=== PATIENT | male | born 1945 | race Caucasian/White ===

== ENCOUNTER → 2019-12-24 09:53 | Outpatient (CLI) | payer OTHER, SELFPAY ==
[2019-12-24 23:42] LABS: COVID19 Sendout Not Detected (Not Detect)
== END ==
PROVIDERS: Visit Provider Physician Assistant
DX: Z01.812 Encounter for preprocedural laboratory examination (principal)
CPT/HCPCS: 87635

== ENCOUNTER 2019-12-27 08:26 | Day surgery (SDC) | payer OTHER, SELFPAY ==
[2019-12-27] MEDS: PROPARACAINE 0.5% OPHTH SOL 2 DROPS EYE-OP (08:42)
[2019-12-27] MEDS: CATARACT EYE COMPOUND (10 DROPS/SYRINGE) 3 DROPS EYE-OP (08:43)
[2019-12-27 08:45] VITALS: BP 147/90; PULSE 66; RESP 18; TEMP 36.9; O2SAT 100; BMI 26.4
--- NOTE | 2019-12-27 08:54 | SUR.OPER ---
Supine on eye stretcher, head on extension cradle secured with tape. Arms tucked at sides with blanket. Pillow under knees.
--- NOTE | 2019-12-27 09:14 | PM.PREOP ---
Pre-operative Note COVID-19 COVID-19 status: Negative Result date/Date tested (Pos, Neg/Pending): 12/24/19 Interval Note History & Physical reviewed/Exam performed by Physician: Yes Changes to H&P: No
[2019-12-27] MEDS: PHENYLEPHRINE/LIDOCAINE VIAL (OR) 0.2 ML EYE-OP (10:01)
[2019-12-27] MEDS: MOXIFLOXACIN INJ 5 MG/ML VIAL EYE-OP (10:02)
[2019-12-27] MEDS: LIDOCAINE 2% INJ SDV 2 ML INJ (10:03)
[2019-12-27] MEDS: CHONDROIDTIN/SOD HYALURONATE 1.05 ML SYRINGE INTRAOCULA (10:03)
[2019-12-27] MEDS: TETRACAINE 0.5% OPHTH DROPS 4 ML 2 DROPS EYE-OP (10:03)
[2019-12-27] MEDS: BALANCED SALT IRRIG SOLN NO.2 500 ML, EPINEPHrine 1 MG IRR (10:04)
--- NOTE | 2019-12-27 10:25 | PM.OP.1 ---
Procedure & Clinicians Procedure: Cataract extraction with intraocular lens implant, right. Same procedure as scheduled: Yes Indications: Visually significant age related nuclear sclerosis Surgeon: Nile Jalloh Click Yes if Unassisted: Yes Anesthesia Type: MAC +/- Operative Notes Procedure in detail: The patient was brought to the operating suite. The correct patient, surgical site and lens were confirmed. 0.5 % tetracaine drops were placed in the right eye and the eye was marked with a corneal reference marker. The patient was prepped and draped in the typical sterile manner. A lid speculum was placed in the eye. 2% lidocaine was placed on the eye. A paracentesis port was created with a side-port blade. 0.1 mL of 1% preservative free lidocaine with phenylephrine was injected into the anterior chamber. Viscoelastic was injected into the anterior chamber. A 2.6mm keratome was used to create a clear corneal temporal incision. Cystotome and Utrata forceps were used to create a continuous curvilinear capsulorrhexis. Balanced salt solution was used to hydrodissect the nucleus. Phacoemulsification was used to remove the lens. The capsular bag was inflated with viscoelastic and marked at 18 degrees. A Beasley VQD326 +18.0D lens was inserted into the capsule and rotated to 18 degrees. Viscoelastic was removed and the wound hydrated. The wound was found to be leak free and the eye was assessed to be at normal physiologic pressure. 0.1mL Moxifloxacin (5mg/mL) preservative free was injected into the anterior chamber. The lens was confirmed to be in good position and at 18 degrees. The lid speculum was removed and the patient left the operating room in excellent condition. Complications: none Post-operative Condition: stable Disposition: same day surgery
[2019-12-27 12:42] VITALS: BP 140/79; PULSE 58; RESP 16; TEMP 36.3; O2SAT 97
== END 2019-12-27 11:00 | disposition home or self-care (01) ==
LOC: OR 08:31
PROVIDERS: Referring Provider Ophthalmology; Visit Provider Ophthalmology
PROC: (CPT 66984; principal; 2019-12-27 09:45)
DX: H25.11 Age-related nuclear cataract, right eye (principal); H35.3132 Nonexudative age-related macular degeneration, bilateral, intermediate dry stage
CPT/HCPCS: 66984; J0171; J2250; V2787

== ENCOUNTER → 2019-12-31 08:12 | Outpatient (CLI) | payer OTHER, SELFPAY ==
[2020-01-01 08:51] LABS: COVID19 Sendout Not Detected (Not Detect)
== END ==
PROVIDERS: Visit Provider Nurse Practitioner
DX: Z01.812 Encounter for preprocedural laboratory examination (principal)
CPT/HCPCS: 87635

== ENCOUNTER 2020-01-03 06:29 | Day surgery (SDC) | payer OTHER, SELFPAY ==
[2020-01-03 07:07] VITALS: BMI 27.3
[2020-01-03 07:14] VITALS: BP 133/72; PULSE 55; RESP 20; TEMP 36.3; O2SAT 98
--- NOTE | 2020-01-03 07:34 | PM.PREOP ---
Pre-operative Note COVID-19 COVID-19 status: Negative Result date/Date tested (Pos, Neg/Pending): 12/31/19 Interval Note History & Physical reviewed/Exam performed by Physician: Yes Changes to H&P: No
[2020-01-03] MEDS: CATARACT EYE COMPOUND (10 DROPS/SYRINGE) 3 DROPS EYE-OP (07:43)
[2020-01-03] MEDS: PROPARACAINE 0.5% OPHTH SOL 3 DROPS EYE-BOTH (07:43)
[2020-01-03] MEDS: PHENYLEPHRINE/LIDOCAINE VIAL (OR) 0.2 ML EYE-OP (08:22)
[2020-01-03] MEDS: MOXIFLOXACIN 0.5% OPHTH 60 DROPS/BOTTLE DROPS INJ (08:23)
[2020-01-03] MEDS: CHONDROIDTIN/SOD HYALURONATE 1.05 ML SYRINGE INTRAOCULA (08:23)
[2020-01-03] MEDS: LIDOCAINE 2% INJ MDV 1 ML INJ (08:24)
[2020-01-03] MEDS: BALANCED SALT IRRIG SOLN NO.2 15 ML IRR (08:24)
[2020-01-03] MEDS: BALANCED SALT IRRIG SOLN NO.2 500 ML, EPINEPHrine 1 MG IRR (08:24)
[2020-01-03] MEDS: TETRACAINE 0.5% OPHTH DROPS 4 ML 2 DROPS EYE-LEFT (08:25)
--- NOTE | 2020-01-03 08:59 | PM.OP.1 ---
Procedure & Clinicians Procedure: Cataract extraction with intraocular lens implant, left. Same procedure as scheduled: Yes Indications: Visually significant age related nuclear sclerosis. Surgeon: Nile Jalloh Click Yes if Unassisted: Yes Anesthesia Type: MAC +/- Operative Notes Procedure in detail: The patient was brought to the operating suite. The correct patient, surgical site and lens were confirmed. 0.5 % tetracaine drops were placed in the left eye and the eye was marked with a corneal reference marker. The patient was prepped and draped in the typical sterile manner. A lid speculum was placed in the eye. 2% lidocaine was placed on the eye. A paracentesis port was created with a side-port blade. 0.1 mL of 1% preservative free lidocaine with phenylephrine was injected into the anterior chamber. Viscoelastic was injected into the anterior chamber. A 2.6mm keratome was used to create a clear corneal temporal incision. Cystotome and Utrata forceps were used to create a continuous curvilinear capsulorrhexis. Balanced salt solution was used to hydrodissect the nucleus. Phacoemulsification was used to remove the lens. The capsular bag was inflated with viscoelastic and the cornea was marked at 160 degrees. A Beasley ZCT 150 +18.0 D lens was inserted into the capsule and rotated to 160 degrees. Viscoelastic was removed and the wound hydrated. The wound was found to be leak free and the eye was assessed to be at normal physiologic pressure. 0.1mL Moxifloxacin (5mg/mL) preservative free was injected into the anterior chamber and the lens was confirmed to be in good position. The lid speculum was removed and the patient left the operating room in excellent condition. Complications: none Post-operative Condition: stable Disposition: same day surgery
[2020-01-03 09:00] VITALS: BP 137/81; PULSE 61; RESP 12; TEMP 36.2; O2SAT 98
--- NOTE | 2020-01-03 10:15 | SUR.PHASEII ---
Patient expressed desire to dress and discharge. Dressed independently.
== END 2020-01-03 09:10 | disposition home or self-care (01) ==
PROVIDERS: Referring Provider Ophthalmology; Visit Provider Ophthalmology
PROC: (CPT 66984; principal; 2020-01-03 07:45)
DX: H25.12 Age-related nuclear cataract, left eye (principal)
CPT/HCPCS: 66984; J0171; V2787